=== PATIENT | male | born 1975 ===

== ENCOUNTER 2019-04-07 12:02 | Emergency (ER) | payer SELFPAY ==
[~2019-04-07] VITALS: Ht 170 cm; Wt 70.0 kg
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
[2019-04-07 12:36] VITALS: BP 149/82
== END 2019-04-07 12:34 | disposition home or self-care (01) ==
LOC: ER FS 12:05
DX: S00.03XA Contusion of scalp, initial encounter (principal); S16.1XXA Strain of muscle, fascia and tendon at neck level, initial encounter; S50.01XA Contusion of right elbow, initial encounter; S50.02XA Contusion of left elbow, initial encounter; S20.419A Abrasion of unspecified back wall of thorax, initial encounter; Y04.8XXA Assault by other bodily force, initial encounter; Y92.59 Other trade areas as the place of occurrence of the external cause
CPT/HCPCS: 99283